=== PATIENT | female | born 1975 | race Caucasian/White ===

== ENCOUNTER 2017-01-12 18:49 | Emergency (ER) | payer BC ==
[~2017-01-12] VITALS: Ht 162.6 cm; Wt 106.8 kg
[~2017-01-12 18:49] MED LIST: AMBIEN 10MG10 MG PO; BACTRIM DS 8001 TAB PO; LISINOPRIL/HCTZ1 TAB PO; NO HOME MEDICATIONS; NORCO 325 MG-51 TAB PO; PHENERGAN 25 TA25 MG PO; PYRIDIATE200 MG PO
[2017-01-12 18:52] VITALS: TEMP 98.1
[2017-01-12] MEDS ORDERED: AMOXICILLIN 50500 MG PO (19:33)
[2017-01-12 19:43] VITALS: BP 124/86; PULSE 66
== END 2017-01-12 19:39 | disposition home or self-care (01) ==
LOC: COL.ER 18:49
DX: R68.84 Jaw pain (principal); Z98.818 Other dental procedure status; H61.23 Impacted cerumen, bilateral

== ENCOUNTER → 2017-03-14 | Outpatient (CLI) | payer BC ==
[~2017-03-14] MED LIST changes: +AMOXICILLIN 50500 MG PO
== END ==
LOC: MC.RAD 03-02 09:00
DX: Z12.31 Encounter for screening mammogram for malignant neoplasm of breast (principal); N64.89 Other specified disorders of breast

== ENCOUNTER → 2017-03-22 | Outpatient (CLI) | payer BC | LOC: MC.RAD 13:00 | DX: N64.89 Other specified disorders of breast (principal); Z90.11 Acquired absence of right breast and nipple; Z90.12 Acquired absence of left breast and nipple ==

== ENCOUNTER 2017-06-14 04:38 | Emergency (ER) | payer BC ==
[~2017-06-14] VITALS: Ht 162.6 cm; Wt 108.2 kg
[2017-06-14] MEDS ORDERED: XANAX 1MG1 MG PO (04:43)
[2017-06-14] MEDS ORDERED: ULTRAM 50MG TAB50 MG PO (04:43)
[2017-06-14] MEDS ORDERED: AMBIEN 10MG10 MG PO (04:43)
[2017-06-14 05:26] LABS: COLLECTION METHOD CLEAN CATCH
[2017-06-14 05:33] LABS: MUCOUS Present /lpf; PH 5 (5-8); URINE APPEARANCE Clear; URINE BACTERIA Rare /hpf; URINE BILIRUBIN Negative (NEGATIVE); URINE BLOOD Negative (NEGATIVE); URINE COLOR Yellow; URINE GLUCOSE Negative (NEGATIVE); URINE KETONE Negative (NEGATIVE); URINE LEUKOCYTE ESTERASE Negative (NEGATIVE); URINE NITRATE Negative (NEGATIVE); URINE PROTEIN(semi-quant) Negative (NEGATIVE); URINE RBC 0-2 /hpf; URINE UROBILINOGEN Negative (NEGATIVE)
[2017-06-14 05:36] LABS: BASO % 0.2 % (0.0-2.0); EOS # 0.2 (0.0-0.7); EOS % 1.2 % (0-4.0); GRAN # 10.4 (1.4-6.5); GRAN % 81.1 % (42.2-75.2); HEMATOCRIT 39.5 % (37.0-47.0); HEMOGLOBIN 12.8 g/dl (12.5-16.0); LYMPH # 1.6 (1.2-3.4); LYMPH % 12.3 % (20.0-51.0); MEAN CELL VOLUME 90 fl (80.0-100.0); MEAN CORPUSCULAR HEMOGLOBIN 29 pg (27.0-31.0); MEAN CORPUSCULAR HGB CONC 32 g/dl (33.0-37.0); MEAN PLATELET VOLUME 9.5 fl (7.4-10.4); MONO # 0.6 (0.1-0.6); MONO % 4.7 % (1.7-9.3); PLATELET COUNT 211 K/mm3 (130-400); RED BLOOD COUNT 4.37 M/mm3 (4.10-5.30); REDCELL DISTRIBUTION WIDTH-CV 12.9 % (11.5-14.5)
[2017-06-14 05:45] LABS: ALBUMIN 4.2 gm/dL (3.5-5.0); BILIRUBIN,TOTAL 0.6 mg/dL (0.0-1.0); CALCIUM 8.9 mg/dL (8.4-10.2); CREATININE, serum 0.54 mg/dL (0.52-1.25); POTASSIUM 3.6 mmol/L (3.4-5.0); TOTAL PROTEIN 7.2 gm/dL (6.4-8.2)
[2017-06-14 05:45] LABS: INFLUENZA A NEGATIVE; INFLUENZA B NEGATIVE
[2017-06-14 06:06] VITALS: TEMP 98.2
[2017-06-14] MEDS ORDERED: ZOFRAN 4MG T4 MG/TAB PO (06:21)
[2017-06-14] MEDS ORDERED: TUSS PO (06:21)
[2017-06-14 07:18] VITALS: BP 116/74; PULSE 75
== END 2017-06-14 07:30 | disposition home or self-care (01) ==
LOC: COL.ER 04:38
PROVIDERS: Emergency Medicine
DX: R10.84 Generalized abdominal pain (principal); R68.83 Chills (without fever); R11.0 Nausea; R09.89 Other specified symptoms and signs involving the circulatory and respiratory systems; R09.81 Nasal congestion; R06.02 Shortness of breath; R14.2 Eructation; R05 Cough; Z90.49 Acquired absence of other specified parts of digestive tract; Z90.710 Acquired absence of both cervix and uterus; R52 Pain, unspecified
CPT/HCPCS: J1885; J2405; J7030

== ENCOUNTER → 2017-06-28 | Outpatient (CLI) | payer BC ==
[~2017-06-28] MED LIST changes: +TUSS PO; +ULTRAM 50MG TAB50 MG PO; +XANAX 1MG1 MG PO; +ZOFRAN 4MG T4 MG/TAB PO
== END ==
LOC: COL.RAD 08:00
DX: M25.9 Joint disorder, unspecified (principal)
CPT/HCPCS: J3301; Q9967

== ENCOUNTER → 2017-11-05 | Outpatient (CLI) | payer BC | LOC: MC.RAD 07:46 | DX: R92.2 Inconclusive mammogram (principal); Z98.86 Personal history of breast implant removal ==

== ENCOUNTER → 2017-11-28 | Outpatient (CLI) | payer BC | LOC: MHCPAIN 09:24 | DX: G89.29 Other chronic pain (principal); M53.3 Sacrococcygeal disorders, not elsewhere classified; M16.9 Osteoarthritis of hip, unspecified; M54.16 Radiculopathy, lumbar region | CPT/HCPCS: G0463 ==

== ENCOUNTER → 2020-02-13 | Outpatient (CLI) | payer BC | LOC: MC.RAD 07:45 | DX: Z12.31 Encounter for screening mammogram for malignant neoplasm of breast (principal); Z90.13 Acquired absence of bilateral breasts and nipples ==

== ENCOUNTER 2020-07-01 08:38 | Emergency (ER) | payer BC ==
[~2020-07-01] VITALS: Ht 162.6 cm; Wt 97.7 kg
[2020-07-01 08:44] VITALS: TEMP 98.7
[2020-07-01 09:40] LABS: BASO # 0.1 (0.0-0.2); BASO % 0.6 % (0.0-2.0); EOS # 0.2 (0.0-0.7); EOS % 2.2 % (0-4.0); GRAN # 6.2 (1.4-6.5); GRAN % 68.4 % (42.2-75.2); HEMATOCRIT 41.5 % (37.0-47.0); HEMOGLOBIN 13.2 g/dl (12.5-16.0); LYMPH % 22.1 % (20.0-51.0); MEAN CELL VOLUME 90 fl (80.0-100.0); MEAN CORPUSCULAR HEMOGLOBIN 29 pg (27.0-31.0); MEAN CORPUSCULAR HGB CONC 32 g/dl (33.0-37.0); MEAN PLATELET VOLUME 9.7 fl (7.4-10.4); MONO # 0.6 (0.1-0.6); MONO % 6.3 % (1.7-9.3); PLATELET COUNT 247 K/mm3 (130-400); RED BLOOD COUNT 4.62 M/mm3 (4.10-5.30); REDCELL DISTRIBUTION WIDTH-CV 13.8 % (11.5-14.5)
[2020-07-01 10:20] LABS: ALANINE AMINOTRANSFERASE 30 U/L (4-34); ALKALINE PHOSPHATASE 53 U/L (50-136); ANION GAP 5 mmol/L (7-16); AST,SGOT 28 U/L (15-37); BILIRUBIN,TOTAL 0.4 mg/dL (0.0-1.0); BLOOD UREA NITROGEN 8 mg/dL (7-17); CALCIUM 8.9 mg/dL (8.4-10.2); CARBON DIOXIDE 28 mmol/L (22-30); CHLORIDE 103 mmol/L (98-107); GLUCOSE 102 mg/dL (74-106); LIPASE 65 U/L (23-300); POTASSIUM 4.1 mmol/L (3.4-5.0); SODIUM 136 mmol/L (137-145); TOTAL PROTEIN 7.3 gm/dL (6.4-8.2)
[2020-07-01 10:31] LABS: TROPONIN-I < 0.012 ng/mL (0.000-0.035)
[2020-07-01 11:41] VITALS: BP 110/66; PULSE 67
== END 2020-07-01 11:43 | disposition home or self-care (01) ==
LOC: COL.ER 08:38
PROVIDERS: Emergency Medicine
DX: R10.13 Epigastric pain (principal); R11.2 Nausea with vomiting, unspecified; R19.7 Diarrhea, unspecified; Z20.822 Contact with and (suspected) exposure to COVID-19; Z88.1 Allergy status to other antibiotic agents
CPT/HCPCS: C9113; J2405; J7030; Q9967

== ENCOUNTER 2021-03-12 09:46 | Emergency (ER) | payer BC, OTHER ==
[~2021-03-12] VITALS: Ht 162.6 cm; Wt 121.8 kg
[2021-03-12 10:50] VITALS: BP 128/88; TEMP 97.8
[2021-03-12 12:18] VITALS: PULSE 70
== END 2021-03-12 12:18 | disposition home or self-care (01) ==
LOC: COL.ER 09:46
DX: J06.9 Acute upper respiratory infection, unspecified (principal); F41.9 Anxiety disorder, unspecified; Z20.822 Contact with and (suspected) exposure to COVID-19; Z79.899 Other long term (current) drug therapy

== ENCOUNTER → 2021-04-22 | Outpatient (CLI) | payer BC, OTHER | LOC: MC.RAD 14:45 | DX: Z12.31 Encounter for screening mammogram for malignant neoplasm of breast (principal) ==

== ENCOUNTER → 2022-04-24 | Outpatient (CLI) | payer BC ==
[~2022-04-24] MED LIST changes: +ANTIVERT 25MG25 MG PO
== END ==
LOC: MC.RAD 08:21
DX: Z00.00 Encounter for general adult medical examination without abnormal findings (principal); Z12.31 Encounter for screening mammogram for malignant neoplasm of breast